=== PATIENT | female | born 1965 | race Caucasian/White ===

== ENCOUNTER 2017-09-12 23:52 | Emergency (ER) | payer SELFPAY, MEDICAID ==
[2017-09-13 01:02] LABS: URINE BLOOD (Dip) POC Negative (NEGATIVE); URINE GLUCOSE (Dip) POC Negative (NEGATIVE); URINE KETONES (Dip) POC Negative (NEGATIVE); URINE LEUKOCYTE EST (Dip) POC Negative (NEGATIVE); URINE NITRITE (Dip) POC Negative (NEGATIVE); URINE TOTAL PROTEIN POC 1+ (NEGATIVE)
[2017-09-13] MEDS: morphine 10 MG INJ IM (01:44)
[2017-09-13] MEDS: KETOROLAC 60 MG INJ IM (01:44)
[2017-09-13] MEDS: METHOCARBAMOL 750 MG TAB PO (02:12)
== END 2017-09-13 03:30 | disposition home or self-care (01) ==
LOC: E/R 23:52
DX: S39.92XA Unspecified injury of lower back, initial encounter (principal); I10 Essential (primary) hypertension; X58.XXXA Exposure to other specified factors, initial encounter; Y92.89 Other specified places as the place of occurrence of the external cause
CPT/HCPCS: 81003; 96372; 99284-25